=== PATIENT | male | born 1960 | race Two or more races ===

== ENCOUNTER → 2017-09-07 | Outpatient (REF) | payer BC | LOC: M SMT 12:59 | PROVIDERS: ATTEND Nurse Practitioner Family | DX: R97.20 Elevated prostate specific antigen [PSA] (principal) ==

== ENCOUNTER → 2019-10-14 | Outpatient (REF) | payer BC | LOC: M SMT 13:11 | PROVIDERS: ATTEND Nurse Practitioner Family | DX: R97.20 Elevated prostate specific antigen [PSA] (principal) ==